=== PATIENT | female | born 1970 | race Caucasian/White ===

== ENCOUNTER 2024-02-04 19:16 | Emergency (ER) | payer MEDICAID ==
[~2024-02-04] VITALS: Ht 154.9 cm; Wt 72.3 kg
[2024-02-04 20:26] VITALS: BP 114/89; PULSE 70; RESP 15; TEMP 98.5; O2SAT 98
== END 2024-02-04 20:28 | disposition home or self-care (01) ==
LOC: ER 19:17
DX: R05.9 Cough, unspecified (principal); Z20.822 Contact with and (suspected) exposure to COVID-19; R11.0 Nausea; J34.89 Other specified disorders of nose and nasal sinuses; F41.9 Anxiety disorder, unspecified; F17.200 Nicotine dependence, unspecified, uncomplicated; Z88.0 Allergy status to penicillin
CPT/HCPCS: 36415; 71045; 87811; 99284

== ENCOUNTER 2025-04-09 00:10 | Emergency (ER) | payer MEDICAID ==
[~2025-04-09] VITALS: Ht 154.9 cm; Wt 74.0 kg
[2025-04-09 00:46] LABS: MEAN PLATELET VOLUME 7.6 FL (7.4-10.4); RED CELL DISTRIBUTION WIDTH 13.1 % (11.5-14.5)
[2025-04-09 00:59] LABS: CREATININE 0.59 MG/DL (0.40-0.90); TOTAL CARBON DIOXIDE 20.3 MMOL/L (24-32); eCRCL 82 ML/MIN; eGFR > 90 ML/MIN
--- NOTE | 2025-04-09 01:14 | Physician Documentation ---
History of Present Illness Chief Complaint: Abdominal Pain Stated Complaint: ABDOMINAL PAINS M ALS Time Seen by MD: 00:51 Primary Medical Doctor: Leighton EDGAR Patient is here with diffuse abdominal pain vomiting and diarrhea. She has been sick for about three days. No fever. Denies any other symptoms her abdominal pain is diffuse cramping mild pain her diarrhea is watery multiple times a day no blood or melena. Medication Reconciliation Allergies: Coded Allergies: Penicillins (Verified Allergy, Unknown, 02/07/24) Scheduled ONDANSETRON ODT 4mg tablet (Ondansetron Odt), 4 MG PO Q6H Past Medical History Past Medical History: Kidney Stones, Thyroid (unspecified), Anxiety Alcohol Use: Occasionally Drug Use: none Physical Exam Vital Signs: Temperature: 97.9, Source: Oral, Heart Rate: 93, Respiratory Rate: 10, BP: 115/80, Pulse Oximetry: 97, Weight: 74.000 Physical Exam General: Awake and Alert, no acute distress. HEENT: Conjunctiva pink, Sclera clear, Neck: Supple Resp: Unlabored. Heart: Good perfusion Abdomen: Nondistended; soft mild diffuse tenderness without point tenderness rebound or guarding or peritoneal signs. Extremities: No cyanosis,clubbing or edema. Skin: Warm and Dry. Neuro: no focal deficits Progress Results/Orders Results/Orders Orders - ESTRELLA DOSS MD Urinalysis, Cult If Indicated (04/09/25 00:18) Saline Lock (04/09/25 00:18) Straight Cath For Urine Sample (04/09/25 00:18) Normal Saline 1000ml (0.9% Sodium Chlori (04/09/25 00:55) Completed Orders - ESTRELLA DOSS MD Cbc/Diff (04/09/25 00:18) Lipase (04/09/25 00:18) CMP (04/09/25 00:18) Ondansetron Inj. (Zofran 4mg/2ml Vial) (04/09/25 00:55) Vital Signs 04/09/25 00:16 Temp 97.9 Pulse 93 Resp 10 B/P (MAP) 115/80 Pulse Ox 97 Laboratory Tests Test 04/09/25 00:35 White Blood Count 8.4 Red Blood Count 5.31 Hemoglobin 16.9 H Hematocrit 49.6 H Mean Corpuscular Volume 93.3 Mean Corpuscular Hemoglobin 31.7 H Mean Corpuscular Hemoglobin Concent 34.0 Red Cell Distribution Width 13.1 Platelet Count 307 Mean Platelet Volume 7.6 Neutrophils (%) (Auto) 63.8 Lymphocytes (%) (Auto) 25.2 Monocytes (%) (Auto) 10.2 Eosinophils (%) (Auto) 0.2 Basophils (%) (Auto) 0.6 Neutrophils # (Auto) 5.4 Lymphocytes # (Auto) 2.1 Monocytes # (Auto) 0.9 Eosinophils # (Auto) 0.0 Basophils # (Auto) 0.1 CBC Comment Sodium Level 136 Potassium Level 3.5 Chloride Level 107 Carbon Dioxide Level 20.3 L Anion Gap 9 Blood Urea Nitrogen 20 H Creatinine 0.59 Estimated GFR/1.73 m2 > 90 BUN/Creatinine Ratio 33.9 H Glucose Level 108 H Calcium Level 8.0 L Total Bilirubin 0.3 Aspartate Amino Transf (AST/SGOT) 99 H Alanine Aminotransferase (ALT/SGPT) 113 H Alkaline Phosphatase 111 Total Protein 7.7 Albumin 3.2 L Globulin 4.5 H Albumin/Globulin Ratio 0.7 L Lipase 27 Chemistry Comments Medical Decision Making Findings Patient is here with vomiting and diarrhea that she has had for three days. Labs were ordered urinalysis was ordered she was given a L of saline Zofran morphine. Patient's LFTs are a little elevated but she drinks alcohol on his has elevated LFTs in the past. This is likely a viral gastroenteritis treatment is supportive care she is given a prescription for Zofran ODT. Departure Disposition: HOME / SELF CARE / HOMELESS Impression: Primary Impression: Abdominal pain Additional Impression: Gastroenteritis Referrals: NO PRIMARY CARE PROVIDER (PCP) Prescriptions ONDANSETRON ODT 4mg tablet (ONDANSETRON ODT) 4 Mg Tab.rapdis 4 MG PO Q6H, #20 TAB Prov: ESTRELLA DOSS MD 04/09/25 Signature Scribe Signature: no scribe Attestation: no scribe ESTRELLA DOSS MD Apr 09, 2025 01:14
[2025-04-09] MEDS: morphine 4 MG/ML inj SYRINge IV ONE (01:41)
[2025-04-09] MEDS: ondansetron/PF 4mg/2ml inj IV ONE (01:43)
[2025-04-09] MEDS: normal saline 1000ml 1,000 ML IV ONE ×2 (01:44)
[2025-04-09] MEDS ORDERED: ONDA-243 PO (01:48)
[2025-04-09 05:58] VITALS: BP 115/80; PULSE 94; RESP 12; TEMP 97.9; O2SAT 95
== END 2025-04-09 06:03 | disposition home or self-care (01) ==
LOC: ER 00:10
DX: K52.9 Noninfective gastroenteritis and colitis, unspecified (principal); F41.9 Anxiety disorder, unspecified; Z87.442 Personal history of urinary calculi; Z88.0 Allergy status to penicillin; Z79.899 Other long term (current) drug therapy; Z72.89 Other problems related to lifestyle
CPT/HCPCS: 36415; 80053; 83690; 85025; 96361; 96374; 96375; 99284; J2270; J2405; J7030; A6250